=== PATIENT | male | born 1985 | race Caucasian/White ===

== ENCOUNTER 2017-11-08 16:59 | Inpatient (IN) | payer BC ==
[~2017-11-08] VITALS: Ht 177.8 cm; Wt 74.0 kg
[~2017-11-08 16:59] MED LIST: CYMBALTA20 MG PO; HALDOL5 MG PO; LITHIUM CARBON300 MG PO; NOHOMEMEDS; TRAZODONE HCL300 MG PO
[2017-11-08 18:54] LABS: BASOPHIL (%) 0.3 % (0-1); CHLORIDE 102 mEq/L (99-109); EOSINOPHIL (%) 0.2 % (0-5); HEMATOCRIT 49.9 % (38.0-50.0); HEMOGLOBIN 18.5 G/DL (12.5-16.6); IMMATURE GRANULOCYTE (%) 0.3 % (0.0-0.7); LYMPHOCYTE (%) 21.3 % (15-42); LYMPHOCYTE COUNT 2.7 K/uL (1.0-2.8); MCH 32.1 PG (29.0-34.0); MCHC 37.1 G/DL (30.0-36.0); MCV 86.5 FL (86-99); MONOCYTE (%) 5.4 % (3-12); MONOCYTE COUNT 0.7 K/uL (0-0.8); NEUTROPHIL (%) 72.5 % (45-76); NEUTROPHIL COUNT 9.1 K/uL (1.8-6.4); PLATELET COUNT 202 K/uL (156-360); POTASSIUM 3.4 mEq/L (3.7-5.4); RBC DIS.WIDTH-CV 12.2 % (11.8-14.6); RBC DIS.WIDTH-SD 38.6 % (39-53); RED BLOOD COUNT 5.77 M/uL (4.00-5.50); SODIUM 141 mEq/L (136-147); WHITE BLOOD COUNT 12.6 K/uL (4.1-10.2)
[2017-11-08 18:56] LABS: GLUCOSE 98 mg/dL (70-99)
[2017-11-08 18:59] LABS: SERUM ETHYL ALCOHOL < 10 mg/dL
[2017-11-08 19:00] LABS: CREATININE 1.1 mg/dL (0.6-1.3); GFR ESTIMATE (CALCULATED) > 59 mL/min/ (58.99-99999)
[2017-11-08 19:01] LABS: UREA NITROGEN (BUN) 10 mg/dL (9-23)
[2017-11-08 19:29] LABS: AMPHETAMINE NEGATIVE (500 ng/mL); BARBITURATES NEGATIVE (200 ng/mL); BENZODIAZEPINES NEGATIVE (150 ng/mL); BUPRENORPHINE NEGATIVE (10 ng/mL); COCAINE NEGATIVE (150 ng/mL); METHADONE NEGATIVE (200 ng/mL); METHAMPHETAMINE NEGATIVE (500 ng/mL); OPIATES (MORPHINE) NEGATIVE (100 ng/mL); OXYCODONE NEGATIVE (100 ng/mL); PHENCYCLIDINE NEGATIVE (25 ng/mL); PROPOXYPHENE NEGATIVE (300 ng/mL); THC CANNABINOIDS NEGATIVE (50 ng/mL); TRICYCLIC ANTIDEPRESSANTS NEGATIVE (300 ng/mL)
[2017-11-08 21:31] VITALS: BP 133/84
[2017-11-08 22:01] VITALS: BP 133/84
[2017-11-09 08:10] VITALS: BP 122/64
[2017-11-09 15:01] VITALS: BP 110/80
[2017-11-10 07:59] VITALS: BP 113/67
[2017-11-10] MEDS ORDERED: LAMICTAL100 MG PO (09:28)
[2017-11-10] MEDS ORDERED: LAMICTAL25 MG PO (09:28)
[2017-11-10] MEDS ORDERED: ARIPIPRAZOLE5 MG PO (09:28)
== END 2017-11-10 10:35 | disposition home or self-care (01) | DRG 885 ==
LOC: EME 16:59 → EDOF 20:35 → ENRESERV 20:54 → 1WEST 21:07
PROVIDERS: Emergency Medicine
DX: F31.30 Bipolar disorder, current episode depressed, mild or moderate severity, unspecified (principal); R45.851 Suicidal ideations; F90.9 Attention-deficit hyperactivity disorder, unspecified type; F95.2 Tourette's disorder; F17.200 Nicotine dependence, unspecified, uncomplicated; Z88.5 Allergy status to narcotic agent
CPT/HCPCS: 80048; 85025; 90839; 99281; 99284; G0480